=== PATIENT | female | born 1940 | race African-American/Black ===

== ENCOUNTER 2019-05-31 20:20 | Emergency (ER) | payer OTHER ==
[2019-05-31 20:43] LABS: Absolute Lymphocytes (CBC) 2.8 K/uL (0.7-4.9); Basophils % 0.5 % (0-1.3); Hematocrit 36.7 % (36.0-45.0); Lymphocytes % 26.7 % (15.3-44.8); MPV 8.3 fL (7.6-11.3); RBC Red Blood Cell Count 4.23 M/uL (3.86-4.86)
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
[2019-05-31] MEDS ORDERED: ACETAMINOPHEN 500 MG TAB ONE (21:07)
[2019-05-31 22:12] LABS: Potassium 3.5 mmol/L (3.5-5.1)
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
[2019-05-31 23:22] VITALS: TEMP 98.5; O2SAT 100
[2019-05-31 23:24] VITALS: BP 138/96
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
== END 2019-05-31 22:40 | disposition home or self-care (01) ==
LOC: ER 20:20
DX: S00.93XA Contusion of unspecified part of head, initial encounter (principal); S80.12XA Contusion of left lower leg, initial encounter; V49.40XA Driver injured in collision with unspecified motor vehicles in traffic accident, initial encounter; I10 Essential (primary) hypertension; E11.9 Type 2 diabetes mellitus without complications
CPT/HCPCS: 36415; 70450; 71250; 72125; 80048; 82947; 85025; 99284